=== PATIENT | male | born 1980 | race Caucasian/White ===

== ENCOUNTER 2016-12-13 07:57 | Inpatient (IN) | payer BC, OTHER ==
[~2016-12-13] VITALS: Ht 185.4 cm; Wt 82.6 kg
[2016-12-13 09:45] VITALS: BP 146/84
--- NOTE | 2016-12-13 09:45 | NUR ---
INTAKE ASSESSMENT Client is A/O X 4, he presents with irritable, flat effect, skin warm to touch,bilateral lungs clear on auscultation, no edema noted, he denies any N/V/D, abdomen soft, non-distended, he reports LBM this morning before admission. He denies any home medication. His PCP is Courtney Silva. He reports NKA. He is here for alcohol withdrawal, he reports drinking since age 14 12 cans of beer (12 oz.), he stated he has tried sobriety on his own, but is too hard and he is afraid of any seizure induced withdrawal. He denies any PMH.
--- NOTE | 2016-12-13 09:56 | NUR ---
Admissions Note 36 year old male admitted to [facility] for alcohol withdrawal. Client reports no PMH. Client is oriented to unit, educated about protocols and how to work TV and call light in his room. Initial VS during intake assessment WNL's. Weight: 182 pounds. Height: 6'1" CIWA: 3 Client appears anxious, flushed face noted, skin intact, warm, moist. Client is hyperverbal and doesn't remember exact dates at this time. Client has NKA. Regular diet ordered. Full code status ordered. Client denies any history of seizures. LBM was 12/13/16, small/brown/soft. Client's PCP is Karlos Silva. He refuses flu/pna vaccine at this time, stating he is afraid he might get sick because of it. Client denied taking any medications at home. Client states that he lives with and two children (ages 11 and 9) Client substance use is as follow, he first started drinking at age 14, but increase intake by age 16, he has been drinking 12 cans of beer (12 oz.), but for the past alia weeks, he has been drinking 2 beers, last consumed 12/12/18 @ 2100 2 beers (12 oz). He denies prior treatment, but stated that he has tried several times to be sober without success. His longest period of sobriety is 30 days, can't remember exact date. Urine has not been collected. Encouraged to All safety measures instituted. Seizure precaution. Call light within reach. Will continue to monitor.
[2016-12-13] MEDS ORDERED: ONDANSETRON ODT 4 MG TAB.RAPDIS SL PRN (11:15)
[2016-12-13] MEDS ORDERED: ACETAMINOPHEN 325 MG TABLET PO PRN (11:15)
[2016-12-13] MEDS ORDERED: CLONIDINE HCL 0.1 MG TABLET PO PRN (11:15)
[2016-12-13] MEDS ORDERED: DICYCLOMINE HCL 20 MG TABLET PO PRN (11:15)
[2016-12-13] MEDS ORDERED: diphenhydrAMINE 50 MG CAPSULE PO PRN (11:15)
[2016-12-13] MEDS ORDERED: IBUPROFEN 400 MG TABLET PO PRN (11:15)
[2016-12-13] MEDS ORDERED: THIAMINE HCL 200 MG/2 ML VIAL IM ONE (11:15)
[2016-12-13] MEDS ORDERED: ONDANSETRON 4 MG/2 ML VIAL IM PRN (11:15)
[2016-12-13] MEDS ORDERED: MIRALAX 17 GM POWD.PACK PO PRN (11:15)
[2016-12-13] MEDS ORDERED: MAG HYDROX/AL HYDROX/SIMETH 30 ML LIQUID UDC PO PRN (11:15)
[2016-12-13] MEDS ORDERED: LORAZEPAM 1 MG TABLET PO PRN ×2 (11:15)
[2016-12-13] MEDS ORDERED: MAGNESIUM HYDROXIDE 30 ML LIQUID UDC PO PRN (11:15)
[2016-12-13] MEDS ORDERED: HYDROXYZINE PAMOATE 25 MG CAPSULE PO PRN (11:15)
[2016-12-13] MEDS ORDERED: LOPERAMIDE HCL 2 MG CAPSULE PO PRN ×2 (11:15)
[2016-12-13] MEDS ORDERED: LORAZEPAM 2 MG/1 ML VIAL IM PRN (11:15)
--- NOTE | 2016-12-13 11:39 | NUR ---
Vit B1 Inj 100mg (1mL) to Left deltoid, client tolerated well.
[2016-12-13 11:45] LABS: BASOPHILS # (AUTO) 0.1 K/uL (0.0-8.0); BASOPHILS % (AUTO) 1.4 % (0.0-2.0); EOSINOPHILS # (AUTO) 0.1 K/uL (0.0-0.7); EOSINOPHILS % (AUTO) 1.9 % (0.0-7.0); HEMATOCRIT 49.7 % (36.7-47.1); HEMOGLOBIN 17.2 g/dL (12.5-16.3); LYMPHOCYTES # (AUTO) 1.6 K/uL (20.0-40.0); LYMPHOCYTES % (AUTO) 20.4 % (20.5-51.5); MEAN CORPUSCULAR HEMOGLOBIN 31.1 uug (23.8-33.4); MEAN CORPUSCULAR HGB CONC 35 g/dL (32.5-36.3); MEAN CORPUSCULAR VOLUME 90.2 fL (73.0-96.2); MONOCYTES # (AUTO) 0.5 K/uL (2.0-10.0); MONOCYTES % (AUTO) 6.7 % (0.0-11.0); NEUTROPHILS # (AUTO) 5.4 K/uL (1.8-8.9); NEUTROPHILS % (AUTO) 69.6 % (38.5-71.5); PLATELET COUNT (AUTO) 297 K/uL (152-348); RED BLOOD CELL COUNT(AUTO) 5.51 MIL/uL (4.06-5.63); RED CELL DISTRIBUTION WIDTH 12.8 % (12.1-16.2); WHITE BLOOD COUNT (AUTO) 7.7 K/uL (3.6-10.2)
[2016-12-13 11:58] LABS: ETHANOL < 3 MG/DL (0-0)
[2016-12-13 12:00] VITALS: BP 143/86
[2016-12-13 12:06] LABS: ALANINE AMINOTRANSFERASE 68 U/L (16-63); ALBUMIN 4.7 g/dL (3.4-5.0); ALKALINE PHOSPHATASE 67 U/L (50-136); AMYLASE 38 U/L (25-115); ASPARTATE AMINOTRANSFERASE 35 U/L (15-37); BILIRUBIN,TOTAL 0.5 mg/dL (0.2-1.0); CALCIUM 9.4 mg/dL (8.5-10.1); CARBON DIOXIDE 30 mmol/L (21-32); CHLORIDE 102 mmol/L (98-107); GFR 84 mL/min (>60); GLUCOSE 87 mg/dL (74-106); LIPASE 127 U/L (73-393); MAGNESIUM 2.2 mg/dL (1.8-2.4); POTASSIUM 4.4 mmol/L (3.5-5.1); SODIUM SERUM 140 mmol/L (136-145); TOTAL PROTEIN, SERUM 8.3 g/dL (6.4-8.2); UREA NITROGEN, BLOOD 14 mg/dL (7-18)
[2016-12-13 12:14] LABS: THYROID STIMULATING HORMONE 1.169 mIU/mL (0.358-3.740)
[2016-12-13 12:25] LABS: HIV-1 p24 ANTIGEN NON REACTIVE (NONREACTIVE); HIV-1/2 ANTIBODY NON REACTIVE (NONREACTIVE)
--- NOTE | 2016-12-13 16:05 | NUR ---
Client provided urine for drug screen.
[2016-12-13 16:50] VITALS: BP 151/91
[2016-12-13 17:01] LABS: *AMPHETAMINE, URINE NEGATIVE (NEGATIVE); *BARBITURATE, URINE NEGATIVE (NEGATIVE); *CANNABINOID, URINE POSITIVE (NEGATIVE); *COCCAINE, URINE POSITIVE (NEGATIVE); *OPIATE, URINE NEGATIVE (NEGATIVE); *PHENCYCLIDINE SCREEN,URINE NEGATIVE (NEGATIVE)
[2016-12-13 17:20] VITALS: BP 143/82
--- NOTE | 2016-12-13 19:02 | NUR ---
END OF SHIFT: Client has lorazepam PRN to manage symptoms of alcohol withdrawal if needed for the next 24 hrs. Lorazepam 1 mg PO q2h PRN CIWA 8-14, Lorazepam 2 mg PO q2h PRN CIWA 15+ and notify MD. Client is in room, A/O X4, he presents with irritable mood, clammy skin, mild anxiety and chills, he denies any N/V/D. Last CIWA 5. No PRN's administered during shift. Adequate PO intake 3350mL, void 2, LBM 12/13/16 He did not attend group therapy or activities. Client is on seizure precautions. Side rails X 2 up/padded, call light within reach, bed locked in lowest positions. Endorsed to incoming nurse.
--- NOTE | 2016-12-13 19:05 | NUR ---
Start of Shift Patient Received. Patient is in his room, awake, alert and verbally responsive. Breathing even and non labored. No signs of pain or discomfort noted. Patient is a 36 year old male, admitted on 12/13/16 for ETOH Dependence, under the care of Dr. Gresham with PRN Ativan Available. CIWA of 8-14 PRN Ativan 1mg available and CIWA of 15 or greater Administer Ativan 2mg. Patient verbalizes No Known allergies, wishes to be full code, following a regular diet, skin intact, and placed on fall and seizure precautions. Patient denies no past medical history. No PRN Medications administered. All needs attended to promptly. Will continue plan of care as ordered.
[2016-12-13 20:01] VITALS: BP 124/91
[2016-12-13] MEDS ORDERED: LORAZEPAM 1 MG TABLET PO ONE (22:30)
[2016-12-14 00:15] VITALS: BP 121/84
[2016-12-14 04:15] VITALS: BP 106/68
--- NOTE | 2016-12-14 07:14 | NUR ---
End of Shift Patient is in bed sleeping. Breathing even and non labored. No signs of pain or discomfort noted. Patient is a 36 year old male, admitted on 12/13/16 for ETOH Dependence, under the care of Dr. Gresham with PRN Ativan Available. CIWA of 8-14 PRN Ativan 1mg available and CIWA of 15 or greater Administer Ativan 2mg. Patient verbalizes No Known allergies, wishes to be full code, following a regular diet, skin intact, and placed on fall and seizure precautions. Patient denies no past medical history. Patient was seen by MD with a onetime order for Ativan 2mg. Patient tolerated well with no increased signs and symptoms of withdrawal noted. All needs attended to promptly. Will endorse to continue plan of care as ordered.
--- NOTE | 2016-12-14 07:42 | NUR ---
START OF SHIFT Client is in bed A/O x4, he presents with irritable mood, flat affect, clammy skin, dilated pupils, he reports chills, denies any N/V/D. Bilateral lung clear on auscultation, abdomen soft, non-tender, no edema noted. Encouraged increased fluid intake and activity as tolerated. Encouraged group therapy attendance. Per endorsing nurse, client is a 36 year old male, admitted on 12/13/16 for ETOH withdrawal, with PRN Ativan available to manage withdrawal symptoms CIWA of 8-14 PRN Ativan 1mg available and CIWA of 15 or greater Administer Ativan 2mg. One time dose of Ativan 2mg PO administered to help with withdrawal symptoms, noted effective. he slept 7 hrs. Last CIWA 5. NKA, full code, regular diet. Client is on seizure precautions. Side rails X 2 up/padded, call light within reach, bed locked in lowest positions. Will continue with plan of care
[2016-12-14 08:02] VITALS: BP 107/76
[2016-12-14] MEDS: FOLIC ACID 1 MG TABLET PO SCH (08:40)
[2016-12-14] MEDS: THIAMINE HCL 100 MG TABLET PO SCH (08:40)
[2016-12-14] MEDS: MULTIVITAMINS,THERAPEUTIC TABLET PO SCH (08:40)
[2016-12-14] MEDS ORDERED: TUBERCULIN,PURIF.PROT.DERIV. 5 TU/0.1 ML TEST ID ONE (09:00)
[2016-12-14 09:07] LABS: HCV AB <0.1 s/co ratio (0.0-0.9); HEPATITIS B CORE AB, IgM Negative (Negative); HEPATITIS B SURFACE AG Negative (Negative)
[2016-12-14] MEDS ORDERED: TRAZODONE 50 MG TABLET PO PRN (10:15)
[2016-12-14 12:00] VITALS: BP 125/81
[2016-12-14 16:50] VITALS: BP 133/88
--- NOTE | 2016-12-14 19:04 | NUR ---
END OF SHIFT: Client's PRN Lorazepam to manage symptoms of alcohol withdrawal for additional 24 hrs. Lorazepam 1 mg PO q2h PRN CIWA 8-14, Lorazepam 2 mg PO q2h PRN CIWA 15+ and notify MD. Client is in room, A/O X4, he reports anxiety, restlessness, chills, denies tremors, headache, confusion, sensory disturbances, vomiting or diarrhea. Last CIWA 3. No PRN's administered during am shift. Adequate PO intake 5000mL, void 10, LBM 12/14/16. He tends to isolate from peers and did not attend group therapy or activities. Client is on seizure precautions. Side rails X 2 up/padded, call light within reach, bed locked in lowest positions. Endorsed to incoming nurse.
--- NOTE | 2016-12-14 19:05 | NUR ---
Start of Shift Patient Received. Patient is in activities room participating in group meeting. Patient is a 36 year old male, admitted on 12/13/16 for ETOH Dependence, under the care of Dr. Gresham with PRN medications available for increased signs and symptoms of withdrawal. Patient verbalizes No Known allergies; wishes to be full code, following a regular diet, skin intact, and placed on fall and seizure precautions. Patient denies no past medical history. No PRN Medications administered. Patient noted with a CIWA of 3 at 1600. Patient noted to participate with group activities and meetings. All needs attended to promptly. Will continue plan of care as ordered.
[2016-12-14 20:36] VITALS: BP 133/88
--- NOTE | 2016-12-14 22:10 | NUR ---
PRN Medication Administration Patient is verbalizing inability of falling asleep. Patient is given PRN Trazodone. Will continue to monitor for effectiveness of medication.
[2016-12-15 00:15] VITALS: BP 111/73
[2016-12-15 04:05] VITALS: BP 115/69
--- NOTE | 2016-12-15 07:07 | NUR ---
End of Shift Patient is in bed sleeping. Breathing even and non labored. No signs of pain or discomfort noted. Patient is a 36 year old male, admitted on 12/13/16 for ETOH Dependence, under the care of Dr. Gresham with PRN medications available for increased signs and symptoms of withdrawal. Patient verbalizes No Known allergies; wishes to be full code, following a regular diet, skin intact, and placed on fall and seizure precautions. Patient denies no past medical history. Patient was given PRN Trazodone given for sleep and medication noted to be effective. Patient slept a total of 8 hours. All needs attended to promptly. Will endorse to continue plan of care as ordered.
--- NOTE | 2016-12-15 07:42 | NUR ---
START OF SHIFT Client is in bed A/O x4, he presents with flat affect and congruent mood, he reports chills and leg restlessness, he denies any N/V/D. He stated "I don't like the medication they gave me last night, it make me feel jigetty ." Skin warm to touch, lungs clear on auscultation, abdomen soft, zero edema. Encouraged increased fluid intake and activity as tolerated. Encouraged group therapy attendance. Per endorsing nurse, client is a 36 year old male, admitted on 12/13/16 for ETOH withdrawal, with PRN Ativan available to manage withdrawal symptoms CIWA of 8-14 PRN Ativan 1mg available and CIWA of 15 or greater Administer Ativan 2mg. PRN Trazodone for inability to aleep, he slept 8 hrs. Last CIWA 0 @ 0400. NKA, full code, regular diet. Client is on seizure precautions. Side rails X 2 up/padded, call light within reach, bed locked in lowest positions. Will continue with plan of care
[2016-12-15] MEDS: FOLIC ACID 1 MG TABLET PO SCH (08:10)
[2016-12-15] MEDS: THIAMINE HCL 100 MG TABLET PO SCH (08:10)
[2016-12-15 08:27] VITALS: BP 116/77
[2016-12-15] MEDS: MULTIVITAMINS,THERAPEUTIC TABLET PO SCH (09:03)
[2016-12-15 12:00] VITALS: BP 129/87
[2016-12-15 12:26] LABS: *AMPHETAMINE, URINE NEGATIVE (NEGATIVE); *BARBITURATE, URINE NEGATIVE (NEGATIVE); *CANNABINOID, URINE POSITIVE (NEGATIVE); *COCCAINE, URINE NEGATIVE (NEGATIVE); *OPIATE, URINE NEGATIVE (NEGATIVE); *PHENCYCLIDINE SCREEN,URINE NEGATIVE (NEGATIVE)
[2016-12-15 16:55] VITALS: BP 131/92
--- NOTE | 2016-12-15 19:05 | NUR ---
Start of Shift Patient Received. Patient is in his room, awake, alert, and verbally responsive. Breathing even and non labored. No signs of pain or discomfort noted. Patient is a 36 year old male, admitted on 12/13/16 for ETOH Dependence, under the care of Dr. Gresham with PRN medications available for increased signs and symptoms of withdrawal. Patient verbalizes No Known allergies; wishes to be full code, following a regular diet, skin intact, and placed on fall and seizure precautions. Patient denies past medical history. No PRN Medications administered. Patient noted with a CIWA of 2 at 1600. Patient noted to participate with group activities and meetings. Patient is set for planned discharge tomorrow 12/16/16 to [facility]. All needs attended to promptly. Will continue plan of care as ordered.
--- NOTE | 2016-12-15 19:24 | NUR ---
END OF SHIFT: Client is in room, A/O X4, he reports mild anxiety, restlessness, he denies tremors, headache, confusion, sensory disturbances, vomiting or diarrhea. Last CIWA 2. Dr Mandel discontinue Trazodone client didn't like it and had side effects, client stated "felt strange and saw lights flickering." No PRN's administered during am shift. Adequate PO intake 3500mL, void 2, LBM 12/14/16. He tends to isolate from peers and did not attend group therapy or activities. Client is on seizure precautions. Side rails X 2 up/padded, call light within reach, bed locked in lowest positions. Endorsed to incoming nurse.
[2016-12-15 20:04] VITALS: BP 131/94
[2016-12-15] MEDS ORDERED: HYDR-3895 PO (21:52)
[2016-12-15] MEDS ORDERED: THIA100T13 PO (21:56)
[2016-12-15] MEDS ORDERED: Folic Acid PO (21:56)
[2016-12-15] MEDS ORDERED: MULT-24 PO (21:56)
[2016-12-15] MEDS ORDERED: Ondansetron SL (21:56)
[2016-12-16 00:37] VITALS: BP 111/79
[2016-12-16 04:17] VITALS: BP 113/72
--- NOTE | 2016-12-16 07:10 | NUR ---
start of sift note: received pt from night guard nurse, pt is in stable condition at this time no s/s of pain or discomfort.pt is admitted to [facility] for ETOH withdrawal/dependence. pt has completed taper and is set for discharge today. pt slept 5 hrs. and last ciwa 1. will continue to monitor pt for any changes and continue to meet pt's needs
[2016-12-16] MEDS: MULTIVITAMINS,THERAPEUTIC TABLET PO SCH (08:06)
[2016-12-16] MEDS: FOLIC ACID 1 MG TABLET PO SCH (08:06)
[2016-12-16] MEDS: THIAMINE HCL 100 MG TABLET PO SCH (08:06)
--- NOTE | 2016-12-16 09:35 | NUR ---
discharge note: pt is a 36 year old male admitted to [facility] for ETOH withdrawal/dependence. pt at this time is in stable condition. pt's V/S WNL. pt's last ciwa 1. no withdrawal symptoms noted. pt teaching administered and pt verbalized understanding. pt left the unit with all personal belongings. pt will be transferred to [facility] via private car
== END 2016-12-16 09:35 | disposition other institution (70) | DRG 895 ==
LOC: SRC 09:10
PROVIDERS: ADMIT Internal Medicine; ATTEND Internal Medicine
PROC: HZ2ZZZZ Detoxification Services for Substance Abuse Treatment (ICD-10-PCS; principal; 2016-12-13)
PROC: HZ41ZZZ Group Counseling for Substance Abuse Treatment, Behavioral (ICD-10-PCS; 2016-12-14)
PROC: HZ31ZZZ Individual Counseling for Substance Abuse Treatment, Behavioral (ICD-10-PCS; 2016-12-15)
DX: F10.230 Alcohol dependence with withdrawal, uncomplicated (principal); K70.10 Alcoholic hepatitis without ascites; F14.10 Cocaine abuse, uncomplicated; Y90.9 Presence of alcohol in blood, level not specified; G47.00 Insomnia, unspecified; F41.9 Anxiety disorder, unspecified; F12.90 Cannabis use, unspecified, uncomplicated; Z81.1 Family history of alcohol abuse and dependence; Z80.9 Family history of malignant neoplasm, unspecified
CPT/HCPCS: 36415; 70030-TC; 71010; 80307; 80349; 80353; 83690; 83735; 84443; 85025; 86592; 86705; 86803; 87340; 87806; A4663; G6040-TC; J3411